=== PATIENT | male | born 1990 | race Caucasian/White ===

== ENCOUNTER 2020-12-29 14:16 | Emergency (ER) | payer BC ==
[~2020-12-29] VITALS: Ht 187.9 cm; Wt 74.8 kg
[~2020-12-29 14:16] MED LIST: ACULAR 0.5%3 ML OPH; KEFLEX500 M1 PO; Tobrex Ophth S2.5 ML OPH
[2020-12-29] MEDS ORDERED: CIPRO500 MG PO (16:05)
[2020-12-29] MEDS ORDERED: CIPROFLOX-DEXA7.5 ML OT (16:05)
== END 2020-12-29 16:17 | disposition home or self-care (01) ==
LOC: ED 14:16
DX: H60.91 Unspecified otitis externa, right ear (principal); H61.22 Impacted cerumen, left ear; Z79.2 Long term (current) use of antibiotics; Z79.899 Other long term (current) drug therapy